=== PATIENT | female | born 1975 | race Caucasian/White ===

== ENCOUNTER 2020-12-07 14:02 | Inpatient (IN) ==
[2020-12-07] MEDS ORDERED: ADENOSINE IV SOLN 3 MG/ML 2 ML VIAL IV ONE ×2 (14:25→14:29)
[2020-12-07] MEDS ORDERED: ADENOSINE IV SOLN 3 MG/ML 2 ML VIAL IV STA ×2 (14:27)
[2020-12-07] MEDS ORDERED: ONDANSETRON INJ 2 MG/ML 2 ML VIAL IV STA (14:27)
[2020-12-07] MEDS ORDERED: SODIUM CHLORIDE 0.9% 1000ML 1,000 ML IV ONE ×2 (14:27→14:42)
[2020-12-07] MEDS ORDERED: MAGNESIUM SULFATE / D5W 1 GM/100 ML BAG IV STA ×2 (14:28→16:23)
[2020-12-07 14:44] LABS: Basophils # (auto) 0.01 K/uL (0-0.2); Basophils % (auto) 0.1 %; Eosinophils # (auto) 0.02 K/uL (0-0.5); Eosinophils % (auto) 0.2 %; Hematocrit (blood only) 44.3 % (37-47); Hemoglobin 15.2 g/dL (12.0-16.0); Immature Granulocytes # (auto) 0.02 K/uL (0.00-0.02); Immature Granulocytes % (auto) 0.2 %; Lymphocytes # (auto) 1.73 K/uL (1.2-3.4); Lymphocytes % (auto) 16.8 %; Mean Corpuscular Hemoglobin 29.9 pg (25-34); Mean Corpuscular Hgb Conc 34.3 g/dL (32-36); Mean Corpuscular Volume 87.2 fL (80-100); Mean Platelet Volume 11.3 fL (7.4-10.4); Monocytes # (auto) 0.54 K/uL (0.11-0.59); Monocytes % (auto) 5.2 %; Neutrophils # (auto) 7.98 K/uL (1.4-6.5); Neutrophils % (auto) 77.5 %; Platelet Count 243 K/uL (130-400); RDW Coefficient of Variation 12.9 % (11.5-14.5); RDW Standard Deviation 41.6 fL (36.4-46.3); Red Blood Count 5.08 M/uL (4.2-5.4)
--- NOTE | 2020-12-07 15:00 | XRay Report ---
XR chest 1V portable CLINICAL HISTORY: Chest Pain COMPARISON STUDY: No previous studies for comparison. FINDINGS: No pneumothorax. No pleural effusion. No large infiltrates or consolidative lesions are seen. Cardiomediastinal silhouette is within normal limits in size. No significant pulmonary vascular congestion.. Osseous structures: unremarkable Linear lucency on the left hemidiaphragm is most likely due to superimposition of posterior aspect of the left inferior rib on gastric bubble however sometimes free air within the abdomen might have sim ilar appearance. IMPRESSION: 1. No large infiltrates or consolidative lesions. 2. Questionable lucency of the left hemidiaphragm most likely due to superimposition of structures h owever sometimes free air within abdomen might have similar appearance. Further evaluation with right decubitus radiograph of the abdomen is recommended. Above-mentioned findings where reported to [facility]. ACT 112: Negative or not required by law. The above report was generated using voice recognition software. It may contain grammatical, syntax o r spelling errors. Electronically signed by: Niyah Diaz DO 12/07/2020 2:59 PM
[2020-12-07 15:16] LABS: Albumin Globulin Ratio 0.8 (0.9-2); Albumin Level 3.7 gm/dl (3.4-5.0); BUN Creatinine Ratio 10.9 (10-20); Bilirubin,Total 0.7 mg/dl (0.2-1); Calcium 9.5 mg/dl (8.5-10.1); Creatine Kinase MB 6.1 ng/ml (0.5-3.6); Creatinine Clr Calc Pharmacy 70.9 ml/min; Est GFR (African American) 65.6 ml/min; Est GFR (Non-African American) 56.6 ml/min; Globulin 4.7 gm/dl (2.5-4.0); Potassium 3.8 mmol/L (3.5-5.1); Total Protein 8.4 gm/dl (6.4-8.2); Troponin I 0.044 ng/ml (0-0.045)
[2020-12-07] MEDS ORDERED: NovoLIN-R INSULIN PER UNIT CHARGE IV STA (15:20)
[2020-12-07] MEDS ORDERED: POTASSIUM CHLORIDE 10 MEQ TABCR PO STA (15:21)
[2020-12-07 15:22] LABS: Partial Thromboplastin Time 25.9 Seconds (21.0-31.0)
[2020-12-07] MEDS ORDERED: Heparin IV Adult Wt-Based Standard *NO* Bolus Protocol IV ONE (15:22)
[2020-12-07 15:27] LABS: Beta-Hydroxybutyrate 7.06 mg/dl (0.2-2.81)
[2020-12-07 15:33] LABS: Pregnancy Test, Serum Negative (Negative)
[2020-12-07 15:37] LABS: D Dimer 720 ug/L FEU (0-500)
[2020-12-07] MEDS: HEPARIN SODIUM/DEXTROSE 25,000 UNITS/500 ML BAG IV SCH (15:39)
[2020-12-07] MEDS ORDERED: OPTIRAY 320 125ml IV ONE (15:54)
[2020-12-07 16:11] LABS: Magnesium 1.7 mg/dl (1.8-2.4); Thyroid Stimulating Hormone 1.15 uIu/ml (0.300-4.500)
--- NOTE | 2020-12-07 16:40 | History & Physical Report ---
Date of Service December 07, 2020 Assessment & Plan (1) SVT (supraventricular tachycardia): This is a 45-year-old female who has significant past medical history of morbid obesity and asthma who presents to ED after experiencing lightheadedness, shortness of breath and palpitations 30 minutes prior to arrival. Patient presented in SVT with initial heart rates in the 150s. Responded appropriately to IV adenosine x2. Initial elevation of his CK and CK-MB, initial troponin 0.044. She denied any chest pain during SVT or current chest pain. In ED she was empirically started on IV heparin due to concern for possible NSTEMI. She also received 1 g IV magnesium, 20 mEq oral potassium, 10 units of IV insulin, 2 L of IV fluid Admit to telemetry Cycle troponins Obtain echocardiogram Consult cardiology CTA Chest pending, will also check venous doppler lower ext b/l replace mag and K, keep > 2.0 and 4.0 respectively start metoprolol tartrate 12.5 mg twice daily, as needed IV Lopressor for heart rates greater than 110 Abnormal Xray ?luceny of L hemidiaphragm chest CTA unremarkable will check KUB (2) Hypomagnesemia: Mag 1.7 Received 1 g mag sulfate in ED, will order additional 1 g Repeat magnesium at 8 PM (3) New onset type 2 diabetes mellitus: Presented to ED with BSG's in the 400 A1c pending Received 10 units IV insulin in ED Lantus/NovoLog per protocol diabetic educator (4) Elevated transaminase level: AST 95, ALT 92, alk phos 159 Question if in setting of fatty liver CTA chest confirms hepatic steatosis recommend diet and weight loss (5) Obesity (BMI 30-39.9): BMI 36.7 Encourage diet and lifestyle modifications (6) DVT prophylaxis: Currently on IV heparin if d/c IV heparin recommend place on SQ lovenox Dispo: PCU PCP: Previously was Dr. Naik - will need to establish with new PCP FULL CODE Patient was seen and examined in collaboration with Dr. Pacheco, please see addendum History of Present Illness Chief Complaint: Lightheadedness, shortness of breath, palpitations 30 minutes prior to arrival. Primary Care Provider: Previously Dr. Naik This is a 45-year -old female who has significant past medical history of morbid obesity and asthma who presents to ED after experiencing lightheadedness, shortness of breath and palpitations 30 minutes prior to arrival. Patient was walking in [facility] for approximately a quarter of a mile whenever she thought she was having, "a panic attack." She began experiencing heart racing, lightheadedness, diaphoresis, nausea and shortness of breath. Her and her opted to turn around and return to her car. She had significant increased difficulty walking back to her car. When she got to her car her husb and noted she continually to sweat profusely and opted to bring her to ED. She denied any associated chest pain, syncope, headache, change in vision, change in hearing, cough, URI symptoms, abdominal pain, change in bowel or urinary habits. When she arrived to ED she was found to have heart rates in the 150s and EKG reading SVT. She did have one episode of vomiting. She received adenosine 6 mg and an additional 12 mg of adenosine until she returned to normal sinus rhythm. She further received 2 L of IV fluid, 1 g mag sulfate, 20 mEq oral potassium and 10 units of IV insulin. She was found to have a blood sugar of 429 on random lab draw. She has no prior diagnosis of diabetes. She previously followed with Dr. Naik prior to him retiring. She states she has not seen a doctor in, "a while." She does have a family history of diabetes and hypertension. She does not speak much with her parents denies any known history of CAD. She states her maternal grandmother did have a CHF in her 60s and in her 70s. She does not take any medication on a regular basis and occasionally uses albuterol for her asthma. She feels her asthma has been otherwise well controlled and denies any recent illness. She also occasionally takes ibuprofen for aches or pains. She denies any smoking but does occasionally use alcohol approximately every 3 weeks. This is socially. She denies any herbal supplements or illicit drug use. Allergies Allergy/AdvReac Type Severity Reaction Status Date / Time No Known Allergies Allergy Unknown Verified 12/07/20 16:07 Home Medications Medication Instructions Recorded Confirmed Type albuterol sulfate 2 puff INHALATION Q6H PRN 12/07/20 12/07/20 History Past Med/Surg History Medical History (Updated 12/07/20 @ 18:14 by Josh Medrano MD) Asthma Surgical History (Updated 12/07/20 @ 16:34 by Supriya Lindsey PA-C) History of x 2 History of D&C S/P laparoscopic hysterectomy Family History (Updated 12/07/20 @ 16:34 by Supriya Lindsey PA-C) Mother Diabetes Hypertension Father Diabetes Hypertension Grandmother (Maternal) CHF (congestive heart failure) Social History (Updated 12/07/20 @ 16:35 by Supriya Lindsey PA-C) Smoking Status: Never smoker Hx Alcohol Use: Yes Alcohol type: beer and wine Alcohol Intake Frequency: Monthly or Less Hx Substance Use: No Preferred Language: Croatian Communication Ability: Effective Soup Person Required: No Beliefs That Will Affect Care: None marital status: Current Living Situation: Family current occupational status: employed 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 Other Information That Helps Us Care for You: No Feels Safe at Home: Yes Safety Concerns: Feels Safe At This Time Assistive Devices: Contacts Review of Systems Review of Systems: All systems reviewed & are unremarkable except as noted in HPI & below Physical Exam Physical Exam: Constitutional: WD/WN, obese, female, vitals as above, NAD, sitting up in bed, pleasant, conversing easily Head: Normocephalic, Atraumatic Eyes: PERRL, conjunctivae normal, anicteric sclerae ENMT: external ear and nose normal, oropharynx normal Neck: trachea midline, no thyromegaly normal visual inspection Respiratory: normal respiratory effort, lungs clear to auscultation, no wheeze, rales, rhonchi. Normal insp/exp effort, no accessory muscle use Cardiovascular: RRR, no murmur, bilateral pretibial edema Vessels: no JVD or carotid bruit Chest: normal inspection of chest Abdomen: normal bowel sounds, soft, nontender, no hepatosplenomegaly Musculoskeletal: no cyanosis or clubbing, extremities motor strength 5/5 Skin: no rashes, warm and dry normal turgor Neurologic: PERRL, EOMI, accommodation nl, no face palsy, no dysarthria CN's II-XI intact bilaterally and moves all extremities Psychiatric: A+Ox3, euthymic affect Lymphatic: no cervical or axillary lymphadenopathy : deferred Results & Data Results & Data ([facility]) Vital Signs (Past 12 Hours) Vital Signs Temp Pulse Resp BP Pulse Ox 12/07/20 14:58 96 H 99 12/07/20 14:57 99 12/07/20 14:32 110 H 26 H 137/102 H 12/07/20 14:15 135 H 21 149/107 H 12/07/20 14:04 36.5 C 151 H 20 146/77 H 98 Diagnostic Findings Chest X-Ray 12/07/20 14:27 XR chest 1V portable CLINICAL HISTORY: Chest Pain COMPARISON STUDY: No previous studies for comparison. FINDINGS: No pneumothorax. No pleural effusion. No large infiltrates or consolidative lesions are seen. Cardiomediastinal silhouette is within normal limits in size. No significant pulmonary vascular congestion.. Osseous structures: unremarkable Linear lucency on the left hemidiaphragm is most likely due to superimposition of posterior aspect of the left inferior rib on gastric bubble however sometimes free air within the abdomen might have similar appearance. IMPRESSION: 1. No large infiltrates or consolidative lesions. 2. Questionable lucency of the left hemidiaphragm most likely due to superimposition of structures however sometimes free air within abdomen might h ave similar appearance. Further evaluation with right decubitus radiograph of the abdomen is recommended. Above-mentioned findings where reported to patient's unit. ACT 112: Negative or not required by law. The above report was generated using voice recognition software. It may contain grammatical, syntax or spelling errors. Electronically signed by: Niyah Diaz DO 12/07/2020 2:59 PM Medications Administered Medication List Heparin Sodium/Dextrose (Heparin Sodium/Dextrose) 25,000 units in 500 mls @ 27 mls/hr IV .[id number] [facility]; Protocol Stop: 01/06/21 15:36 Last Admin: 12/07/20 15:39 Dose: 1,350 units/hr, 27 mls/hr Documented by: [id number] Cosigned by: [id number] Discontinued Medications Adenosine (Adenosine Iv Soln 3 Mg/Ml 2 Ml Vial) Confirm Administered Dose 6 mg IV .STK-MED ONE Stop: 12/07/20 14:26 Last Admin: 12/07/20 14:26 Dose: 6 mg Documented by: [id number] Adenosine (Adenosine Iv Soln 3 Mg/Ml 2 Ml Vial) 6 mg IV NOW STA Stop: 12/07/20 14:28 Last Admin: 12/07/20 14:38 Dose: Not Given Documented by: [id number] Adenosine (Adenosine Iv Soln 3 Mg/Ml 2 Ml Vial) 12 mg IV NOW STA Stop: 12/07/20 14:28 Last Admin: 12/07/20 14:28 Dose: 12 mg Documented by: [id number] Adenosine (Adenosine Iv Soln 3 Mg/Ml 2 Ml Vial) Confirm Administered Dose 6 mg IV .STK-MED ONE Stop: 12/07/20 14:30 Last Admin: 12/07/20 14:38 Dose: Not Given Documented by: [id number] Heparin Sodium/Dextrose (Heparin Iv Adult Wt-Based Standard *No* Bolus Protocol) 1 ea IV ONE ONE; Protocol Stop: 12/07/20 15:23 Last Admin: 12/07/20 15:41 Dose: 1 ea Documented by: [id number] Sodium Chloride (Nss 1000ml) 1,000 mls @ 999 mls/hr IV .Q1H1M ONE Stop: 12/07/20 15:27 Last Admin: 12/07/20 14:26 Dose: 999 mls/hr Documented by: [id number] Magnesium Sulfate/Dextrose (Magnesium Sulfate / D5w) 1 gm in 100 mls @ 100 mls/hr IV NOW STA Stop: 12/07/20 15:27 Last Admin: 12/07/20 14:38 Dose: 100 mls/hr Documented by: [id number] Sodium Chloride (Nss 1000ml) 1,000 mls @ 999 mls/hr IV .Q1H1M ONE Stop: 12/07/20 15:42 Last Admin: 12/07/20 15:30 Dose: 999 mls/hr Documented by: [id number] Insulin Human Regular (Novolin-R Insulin Per Unit Charge) 10 units IV NOW STA Stop: 12/07/20 15:21 Last Admin: 12/07/20 15:26 Dose: 10 units Documented by: [id number] Cosigned by: [id number] Ioversol (Optiray 320 125ml) 119 ml IV ONCE ONE Stop: 12/07/20 15:55 Last Admin: 12/07/20 15:55 Dose: 1 ml Documented by: [id number] Ondansetron HCl (Ondansetron Inj 2 Mg/Ml 2 Ml Vial) 4 mg IV NOW STA Stop: 12/07/20 14:28 Last Admin: 12/07/20 14:37 Dose: 4 mg Documented by: [id number] Potassium Chloride (Potassium Chloride 10 Meq Tabcr) 20 meq PO NOW STA Stop: 12/07/20 15:22 Last Admin: 12/07/20 15:39 Dose: 20 meq Documented by: [id number] ECG Rate (beats per minute): 150 Rhythm: SVT Findings: + ST depression (lateral) COVID-19 Results Results COVID-19 Adm Lab Results: RBC 5.08 M/uL (4.2-5.4) 12/07/20 WBC 10.30 K/uL (4.8-10.8) 12/07/20 Hgb 15.2 g/dL (12.0-16.0) 12/07/20 Hct 44.3 % (37-47) 12/07/20 Plt Count 243 K/uL (130-400) 12/07/20 Neutrophils (%) (Auto) 77.5 % 12/07/20 Lymphocytes (%) (Auto) 16.8 % 12/07/20 Monocytes # (Auto) 0.54 K/uL (0.11-0.59) 12/07/20 Eosinophils # (Auto) 0.02 K/uL (0-0.5) 12/07/20 Immature Granulocyte % (Auto) 0.2 % 12/07/20 Neutrophils # (Auto) 7.98 K/uL (1.4-6.5) H 12/07/20 Lymphocytes # (Auto) 1.73 K/uL (1.2-3.4) 12/07/20 Monocytes # (Auto) 0.54 K/uL (0.11-0.59) 12/07/20 Eosinophils # (Auto) 0.02 K/uL (0-0.5) 12/07/20 Basophils # (Auto) 0.01 K/uL (0-0.2) 12/07/20 Immature Granulocyte # (Auto) 0.02 K/uL (0.00-0.02) 12/07/20 Na 134 mmol/L (136-145) L 12/07/20 K 3.8 mmol/L (3.5-5.1) 12/07/20 Cl 99 mmol/L (98-107) 12/07/20 CO2 27 mmol/L (21-32) 12/07/20 Anion Gap 8.0 (3-11) 12/07/20 BUN 13 mg/dl (7-18) 12/07/20 Creatinine 1.15 mg/dl (0.6-1.2) 12/07/20 BUN/Creatinine Ratio 10.9 (10-20) 12/07/20 Glucose Level 429 mg/dl (70-99) H* 12/07/20 Ca 9.5 mg/dl (8.5-10.1) 12/07/20 Total Bilirubin 0.7 mg/dl (0.2-1) 12/07/20 AST/SGOT 95 U/L (15-37) H 12/07/20 ALT/SGPT 92 U/L (12-78) H 12/07/20 Alkaline Phosphatase 159 U/L (45-117) H 12/07/20 Total Protein 8.4 gm/dl (6.4-8.2) H 12/07/20 Albumin 3.7 gm/dl (3.4-5.0) 12/07/20 Globulin 4.7 gm/dl (2.5-4.0) H 12/07/20 Albumin/Globulin Ratio 0.8 (0.9-2) L 12/07/20 Total CK 307 U/L (26-192) H 12/07/20 Troponin I 0.044 ng/ml (0-0.045) 12/07/20 D-Dimer 720 ug/L FEU (0-500) H* 12/07/20 PTT 25.9 Seconds (21.0-31.0) 12/07/20 COVID-19 PCR NEGATIVE (Negative) 12/07/20 Chest X-Ray 12/07/20 Code Status & VTE Plan Code Status Full Code VTE Prophylaxis Plan VTE Prophylaxis will be ordered: No Supervising Physician Co-Signing Physician Notes Patient is a 45-year-old female with history of asthma which is well controlled but otherwise no significant past medical history presents with history of an episode of shortness of breath, dizziness associated with palpitation, and diaphoresis lasting for about 30 minutes. Patient denies having similar episode in the past. Patient also denies any history of chest pain, fever, chills, abdominal pain, diarrhea, dysuria, recent change in medications. She did admit to have episode of vomiting. She denies any alcohol use. No known history of sleep apnea or diabetes. She admits to drinking about 8 cups of tea every day. Please review H&P for complete details of presentation. Patient was found to be in SVT while in ED. She received 2 doses of Adenosine which resolved her symptoms. She was also noted to have elevated blood pressure while in ED. On exam patient is obese, no apparent distress, normocephalic atraumatic, lungs are clear to auscultation, normal breath sounds, S1-S2, no murmur, no pedal edema, abdomen soft, nontender, normal bowel sounds, alert, awake, oriented, grossly no focal neurological deficits. Her D-dimer was elevated at 720. Glucose elevated at 429 on presentation. Magnesium noted at 1.7. Transaminitis with AST, ALT, alkaline phosphatase elevation noted. TSH is within normal limits. She was started on IV heparin while in the ED due to concerns for possible ACS. CTA showed no signs of no pulmonary embolism multifocal consolidation. But showed findings of hepatic steatosis. Patient is admitted for management of SVT, new onset diabetes mellitus, transaminitis, hypomagnesemia and elevated D-dimer. Currently she is in sinus. Will obtain resting echo, monitor electrolytes and replace as needed, consult cardiology. Will start on metoprolol, losartan for better blood pressure control. Will replace magnesium. Will Utilize Insulin therapy while hospitalized and obtain HbA1c. Transaminitis likely secondary to will trend liver function tests. Will obtain venous Dopplers to rule out DVT. Will consider discontinuing IV heparin if troponin remains un elevated. I personally reviewed the record. Patient is interviewed and examined at bedside. Patient's care is coordinated with Supriya Lindsey PA-C. Please refer to the documentation above for details of patient's presentation and for discussion of other issues.
[2020-12-07] MEDS ORDERED: METOPROLOL TARTRATE 25 MG TAB PO STA ×2 (16:52→21:34)
[2020-12-07 17:01] LABS: Appearance Urine Clear (Clear); Bilirubin Urine Negative (Negative); Blood Urine Negative (Negative); Color Urine Yellow; Glucose Urine UA 3+ (Negative); Ketones Urine 1+ (Negative); Leukocyte Esterase Urine Negative (Negative); Nitrite Urine Negative (Negative); Protein Urine Negative (Negative); Specific Gravity Urine 1.024 (1.000-1.030); Urobilinogen Urine Negative (Negative); pH Urine 5.5 (4.5-7.5)
--- NOTE | 2020-12-07 17:09 | CT Scan Report ---
CT ANGIOGRAM OF THE CHEST CLINICAL HISTORY: PE COMPARISON STUDY: No previous studies for comparison. TECHNIQUE: Following the IV administration of 119 mL of Optiray, CT angiogram of the thorax was perfo rmed from the thoracic inlet to the lung bases utilizing the pulmonary embolus protocol. Images are r eviewed in the axial, sagittal, and coronal planes. IV contrast was administered without complication . MIP imaging was performed. A dose lowering technique was utilized adhering to the principles of AL YONI. CT DOSE: 445.66 mGy.cm FINDINGS: There is adequate opacification within main pulmonary artery. No acute pulmonary embolus seen. There is mild prominence of the main pulmonary artery is seen. Heart is normal in size without pericardial effusion or right heart strain. No coronary calcification s seen. There is no axillary, supra clavicle or internal mammary lymphadenopathy seen. Visualized portion of thyroid gland shows no evidence of focal lesions. Esophagus is normal. Aorta is normal in caliber. Tracheobronchial tree is patent. No large infiltrates or consolidative lesions are seen. Mild atelectasis at dependent portions of bilateral lower lobes is seen. There is no pleural effusion demonstrated. Limited evaluation of upper abdominal viscera shows hepatic steatosis and no acute abnormalities. Evaluation of osseous structures shows mild degenerative changes of the spine. IMPRESSION: 1. No acute pulmonary embolus. 2. No infiltrates or consolidative lesions are seen. Minimal atelectasis at dependent portions of bi lateral lower lobes. 3. Hepatic steatosis ACT 112: Negative or not required by law. The above report was generated using voice recognition software. It may contain grammatical, syntax o r spelling errors. Electronically signed by: Niyah Diaz DO 12/07/2020 5:07 PM
--- NOTE | 2020-12-07 18:04 | Emergency Department Note ---
Impression & Plan SVT (supraventricular tachycardia), New onset type 2 diabetes mellitus, Elevated transaminase level, Elevated troponin ED Provider Note NAME: KRISTEN MOROCHO AGE: 45 SEX: F : 1975 ARRIVES VIA: Walk-In INFORMANT: Patient, ED PROVIDER(S): Josh Medrano MD CHIEF COMPLAINT: shortness of breath, dizziness HPI: This is a 45-year-old female who presents emergency department complaining of shortness of breath that developed while the patient was walking in the park today. The patient reports she normally ate breakfast and was walking in the park. (It is a hot humid day) when she developed a sudden onset of weakness along with dizziness and shortness of breath. The patient reports it feels like her heart is beating out of her chest however she denies any chest pain. The patient's symptoms continued to get worse until she arrived here in the emergency department when she vomited. She reports any exertion makes the shortness of breath worse and rest seems to help it somewhat. She has not taken anything for this prior to arrival. She denies any abdominal pain. ROS: See above HPI for pertinent positives & negatives. A total of 10 systems reviewed and were otherwise negative. PAST MEDICAL HISTORY: See Below PAST SURGICAL HISTORY: See Below FAMILY HISTORY: See Below SOCIAL HISTORY: See Below HOME MEDICATIONS: See Below ALLERGIES: See Below VITALS: See Below PHYSICAL EXAMINATION: VITAL SIGNS - Vital signs and nursing notes were reviewed. GENERAL - 45-year-old female appearing stated age who is in moderate distress. Communicates well with provider and answers questions appropriately. SKIN - Without rashes. HEAD - NC/AT. EYES - PERRL with EOMI bilaterally. Sclera anicteric. Palpebral conjunctiva pink and moist with no injection noted. EARS - No deformities of external structures noted on gross examination bilaterally. NOSE - Midline and without cyanosis. No epistaxis or purulent drainage noted. Septum midline without deviation or septal hematoma noted. MOUTH/OROPHARYNX - Without perioral cyanosis. Buccal mucosa pink and moist and without leukoplakia. Tongue midline with equal elevation of palate bilaterally. No tonsillar hypertrophy, erythema, or exudates noted. NECK - Neck with FROM. Supple to palpation. No nuchal rigidity. LUNGS - Chest wall symmetric without accessory muscle use, intercostals retractions, or central cyanosis. Normal vesicular breath sounds CTA B/L. No wheezes, rales, or rhonchi appreciated. CARDIAC - Rapid Rate with S1/S2. No murmur, rubs, or gallops appreciated. ABDOMEN - Abdominal contour without pulsations or visible masses. BS normoactive all four quadrants. No tenderness, palpable masses, hepatosplenomegaly, or ascites noted. EXTREMITIES - No clubbing or peripheral cyanosis. No pretibial edema present. +3/5 radial, posterior tibial, and dorsalis pedis pulses palpated throughout. +5 /5 strength noted in UE/LE bilaterally. NEUROLOGIC - Cranial nerves II through XII grossly intact. Sensory intact to light touch throughout. Patellar reflexes +2/4. PSYCH - A&Ox3 and cooperates fully with examiner. Pt is very pleasant and interacts well with examiner. MEDICAL DECISION MAKING: Patient was seen and evaluated as above in room A2. Review was performed of nursing notes and vital signs. I did review pertinent previous visits and patient history. After obtaining a thorough history and physical examination the above work up was performed. This a 45-year-old female who presents to the emergency department complaining of palpitations. The patient was noted to have a heart rate in the 150s and she was immediately taken to a room and immediately interviewed by me. I attempted to do vasovagal maneuvers with ice without any success in the patient's heart rate. She was then given adenosine here in the emergency department x2. This resulted in immediate improvement in the patient's heart rhythm. The patient was then given 2 L of fluid started on magnesium as well as Zofran. The patient's glucose levels found to be grossly elevated. She was then given 10 units of insulin IV after her potassium was repleted. I suspect this is the patient's undiagnosed diabetes declaring itself however she also does have elevations in her CK MB as well as troponin. For this reason she was started on a heparin drip. She was sent for CAT scan of the chest due to the elevation in her D-dimer. I did discuss her case with cardiology who asked that the enzymes to be trended and did discuss the case with the hospitalist service who did agree to admit the patient. An order was placed for continuous cardiac monitoring. The monitor shows a rate of 150 with Supraventricular rhythm. The patient was evaluated during a period of high volume and high acuity during the global COVID-19 pandemic, and that diagnosis was suspected/considered upon their initial presentation. Their evaluation, treatment and testing was consistent with current guidelines for patients who present with complaints or symptoms that may be related to COVID-19. Patient was seen while provider was wearing PPE. Triage Nursing notes reviewed. Prior medical records reviewed Vital Signs: reviewed and remarkable for no significant abnormalities Differential diagnosis: Cardiac ischemia, aortic dissection, pulmonary embolism, pneumothorax, pneumonia, pericarditis, myocarditis, esophageal rupture, GERD, cholecystitis, pancreatitis, musculoskeletal, as well as other pathologies. ER treatment provided: See below Diagnostics interpreted by me: ECG: EKG shows a supraventricular tachycardia left axis deviation no ST elevation or depression QTC is 461 ventricular rate is 142 there is no previous EKG to compare to Repeat EKG shows a sinus tachycardia left axis deviation QTC is 482 ventricular rate is [address] elevation or depression when compared to previous EKG ST is no longer depressed in the inferior leads Repeat EKG shows a normal sinus rhythm left axis deviation prolonged QT QTC is 44 ventricular rate is 90 when compared to previous EKG inverted T waves have normalized Laboratory studies: As stated above and show below. Imaging studies: See below Consultation(s): Cardiology Internal Medicine Critical Care: I have personally spent greater than 30 minutes of critical care time in the direct management of this patient. This includes bedside care, interpretation of diagnostic studies, and testing, discussion with consultants, patient, and family members, and other required patient management activities. This 30 minutes is in excess of all separately billable procedures. Past Med/Surg History Medical History (Updated 12/07/20 @ 18:14 by Josh Medrano MD) Asthma Surgical History (Updated 12/07/20 @ 16:34 by Supriya Lindsey PA-C) History of x 2 History of D&C S/P laparoscopic hysterectomy Family History (Updated 12/07/20 @ 16:34 by Supriya Lindsey PA-C) Mother Diabetes Hypertension Father Diabetes Hypertension Grandmother (Maternal) CHF (congestive heart failure) Social History (Updated 12/07/20 @ 16:35 by Supriya Lindsey PA-C) Smoking Status: Never smoker Hx Alcohol Use: Yes Alcohol type: beer and wine Alcohol Intake Frequency: Monthly or Less Hx Substance Use: No Preferred Language: Romansh marital status: Current Living Situation: Family current occupational status: employed 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 Feels Safe at Home: Yes Allergies Allergies Allergy/AdvReac Type Severity Reaction Status Date / Time No Known Allergies Allergy Unknown Verified 12/07/20 16:07 Home Meds Home Medications Medication Instructions Recorded Confirmed albuterol sulfate 2 puff INHALATION Q6H PRN 12/07/20 12/07/20 Results & Data (ED) Vital Signs Vital Signs - 24 hr 12/07/20 14:04 12/07/20 14:15 12/07/20 14:32 Temperature 36.5 C Temperature Source Temporal Artery Scan Pulse Rate 151 H 135 H 110 H Pulse Rate from SpO2 Sensor Pulse Rhythm Regular Pulse Strength Normal Respiratory Rate 20 21 26 H Respiratory Effort / Characteristics Non-Labored Spontaneous Respiratory Depth Normal Respiratory Pattern Regular Blood Pressure 146/77 H 149/107 H 137/102 H Blood Pressure Mean 100 121 113 Blood Pressure Position Sitting Pulse Oximetry 98 Oxygen Delivery Method Room Air Sepsis Recent Fever Within 48 Hours No Sepsis New/Unexplained Change in Mental Status No Sepsis Action Taken by Nursing No Action Required 12/07/20 14:57 12/07/20 14:58 12/07/20 16:31 Temperature Temperature Source Pulse Rate 96 H Pulse Rate from SpO2 Sensor 93 H Pulse Rhythm Pulse Strength Respiratory Rate 20 Respiratory Effort / Characteristics Respiratory Depth Respiratory Pattern Blood Pressure 150/104 H Blood Pressure Mean 119 Blood Pressure Position Pulse Oximetry 99 99 100 Oxygen Delivery Method Room Air Room Air Room Air Sepsis Recent Fever Within 48 Hours Sepsis New/Unexplained Change in Mental Status Sepsis Action Taken by [facility]pc Medications Current Medication List: was personally reviewed by me Laboratory Data Attestation: I reviewed the patient's lab results. Result diagrams: 12/07/20 14:35 12/07/20 14:35 Lab Results 12/07/20 12/07/20 12/07/20 Range/Units 14:35 14:35 14:35 WBC 10.30 (4.8-10.8) K/uL RBC 5.08 (4.2-5.4) M/uL Hgb 15.2 (12.0-16.0) g/dL Hct 44.3 (37-47) % MCV 87.2 (80-100) fL MCH 29.9 (25-34) pg MCHC 34.3 (32-36) g/dL RDW Std Deviation 41.6 (36.4-46.3) fL RDW Coeff of Wolfgang 12.9 (11.5-14.5) % Plt Count 243 (130-400) K/uL MPV 11.3 H (7.4-10.4) fL Immature Gran % (Auto) 0.2 % Neut % (Auto) 77.5 % Lymph % (Auto) 16.8 % [place] % (Auto) 5.2 % Eos % (Auto) 0.2 % Baso % (Auto) 0.1 % Neut # (Auto) 7.98 H (1.4-6.5) K/uL Lymph # (Auto) 1.73 (1.2-3.4) K/uL [place] # (Auto) 0.54 (0.11-0.59) K/uL Eos # (Auto) 0.02 (0-0.5) K/uL Baso # (Auto) 0.01 (0-0.2) K/uL Immature Gran # (Auto) 0.02 (0.00-0.02) K/uL APTT 25.9 (21.0-31.0) Seconds PTT Ratio 1.0 D-Dimer 720 H* (0-500) ug/L FEU Sodium 134 L (136-145) mmol/L Potassium 3.8 (3.5-5.1) mmol/L Chloride 99 (98-107) mmol/L Carbon Dioxide 27 (21-32) mmol/L Anion Gap 8.0 (3-11) BUN 13 (7-18) mg/dl Creatinine 1.15 (0.6-1.2) mg/dl Est Cr Clr Drug Dosing 70.9 ml/min Est GFR ( Amer) 65.6 ml/min Est GFR (Non-Af Amer) 56.6 ml/min BUN/Creatinine Ratio 10.9 (10-20) Glucose 429 H* (70-99) mg/dl POC Glucose (70-99) mg/dl Calcium 9.5 (8.5-10.1) mg/dl Magnesium 1.7 L (1.8-2.4) mg/dl Total Bilirubin 0.7 (0.2-1) mg/dl AST 95 H (15-37) U/L ALT 92 H (12-78) U/L Alkaline Phosphatase 159 H (45-117) U/L Total Creatine Kinase 307 H (26-192) U/L CK-MB (CK-2) 6.1 H (0.5-3.6) ng/ml CK/CKMB % Calc 2.0 (0-3.0) Troponin I 0.044 (0-0.045) ng/ml Total Protein 8.4 H (6.4-8.2) gm/dl Albumin 3.7 (3.4-5.0) gm/dl Globulin 4.7 H (2.5-4.0) gm/dl Albumin/Globulin Ratio 0.8 L (0.9-2) Lipase 107 (73-393) U/L Beta-Hydroxybutyric Acd 7.06 H (0.2-2.81) mg/dl TSH 1.150 (0.300-4.500) uIu/ml HCG, Qual (Negative) Urine Color Urine Appearance (Clear) Urine pH (4.5-7.5) Ur Specific [place] (1.000-1.030) Urine Protein (Negative) Urine Glucose (UA) (Negative) Urine Ketones (Negative) Urine Blood (Negative) Urine Nitrite (Negative) Urine Bilirubin (Negative) Urine Urobilinogen (Negative) Ur Leukocyte Esterase (Negative) COVID-19 Eval Order SARS-CoV-2 (PCR) (Negative) 12/07/20 12/07/20 12/07/20 Range/Units 14:48 14:49 14:49 WBC (4.8-10.8) K/uL RBC (4.2-5.4) M/uL Hgb (12.0-16.0) g/dL Hct (37-47) % MCV (80-100) fL MCH (25-34) pg MCHC (32-36) g/dL RDW Std Deviation (36.4-46.3) fL RDW Coeff of Wolfgang (11.5-14.5) % Plt Count (130-400) K/uL MPV (7.4-10.4) fL Immature Gran % (Auto) % Neut % (Auto) % Lymph % (Auto) % [place] % (Auto) % Eos % (Auto) % Baso % (Auto) % Neut # (Auto) (1.4-6.5) K/uL Lymph # (Auto) (1.2-3.4) K/uL [place] # (Auto) (0.11-0.59) K/uL Eos # (Auto) (0-0.5) K/uL Baso # (Auto) (0-0.2) K/uL Immature Gran # (Auto) (0.00-0.02) K/uL APTT (21.0-31.0) Seconds PTT Ratio D-Dimer (0-500) ug/L FEU Sodium (136-145) mmol/L Potassium (3.5-5.1) mmol/L Chloride (98-107) mmol/L Carbon Dioxide (21-32) mmol/L Anion Gap (3-11) BUN (7-18) mg/dl Creatinine (0.6-1.2) mg/dl Est Cr Clr Drug Dosing ml/min Est GFR ( Amer) ml/min Est GFR (Non-Af Amer) ml/min BUN/Creatinine Ratio (10-20) Glucose (70-99) mg/dl POC Glucose (70-99) mg/dl Calcium (8.5-10.1) mg/dl Magnesium (1.8-2.4) mg/dl Total Bilirubin (0.2-1) mg/dl AST (15-37) U/L ALT (12-78) U/L Alkaline Phosphatase (45-117) U/L Total Creatine Kinase (26-192) U/L CK-MB (CK-2) (0.5-3.6) ng/ml CK/CKMB % Calc (0-3.0) Troponin I (0-0.045) ng/ml Total Protein (6.4-8.2) gm/dl Albumin (3.4-5.0) gm/dl Globulin (2.5-4.0) gm/dl Albumin/Globulin Ratio (0.9-2) Lipase (73-393) U/L Beta-Hydroxybutyric Acd (0.2-2.81) mg/dl TSH (0.300-4.500) uIu/ml HCG, Qual Negative (Negative) Urine Color Urine Appearance (Clear) Urine pH (4.5-7.5) Ur Specific [place] (1.000-1.030) Urine Protein (Negative) Urine Glucose (UA) (Negative) Urine Ketones (Negative) Urine Blood (Negative) Urine Nitrite (Negative) Urine Bilirubin (Negative) Urine Urobilinogen (Negative) Ur Leukocyte Esterase (Negative) COVID-19 Eval Order Covid19 at [facility] SARS-CoV-2 (PCR) NEGATIVE (Negative) 12/07/20 12/07/20 12/07/20 Range/Units 15:55 15:56 15:57 WBC (4.8-10.8) K/uL RBC (4.2-5.4) M/uL Hgb (12.0-16.0) g/dL Hct (37-47) % MCV (80-100) fL MCH (25-34) pg MCHC (32-36) g/dL RDW Std Deviation (36.4-46.3) fL RDW Coeff of Wolfgang (11.5-14.5) % Plt Count (130-400) K/uL MPV (7.4-10.4) fL Immature Gran % (Auto) % Neut % (Auto) % Lymph % (Auto) % [place] % (Auto) % Eos % (Auto) % Baso % (Auto) % Neut # (Auto) (1.4-6.5) K/uL Lymph # (Auto) (1.2-3.4) K/uL [place] # (Auto) (0.11-0.59) K/uL Eos # (Auto) (0-0.5) K/uL Baso # (Auto) (0-0.2) K/uL Immature Gran # (Auto) (0.00-0.02) K/uL APTT (21.0-31.0) Seconds PTT Ratio D-Dimer (0-500) ug/L FEU Sodium (136-145) mmol/L Potassium (3.5-5.1) mmol/L Chloride (98-107) mmol/L Carbon Dioxide (21-32) mmol/L Anion Gap (3-11) BUN (7-18) mg/dl Creatinine (0.6-1.2) mg/dl Est Cr Clr Drug Dosing ml/min Est GFR ( Amer) ml/min Est GFR (Non-Af Amer) ml/min BUN/Creatinine Ratio (10-20) Glucose (70-99) mg/dl POC Glucose 333 H* 332 H* (70-99) mg/dl Calcium (8.5-10.1) mg/dl Magnesium (1.8-2.4) mg/dl Total Bilirubin (0.2-1) mg/dl AST (15-37) U/L ALT (12-78) U/L Alkaline Phosphatase (45-117) U/L Total Creatine Kinase (26-192) U/L CK-MB (CK-2) (0.5-3.6) ng/ml CK/CKMB % Calc (0-3.0) Troponin I (0-0.045) ng/ml Total Protein (6.4-8.2) gm/dl Albumin (3.4-5.0) gm/dl Globulin (2.5-4.0) gm/dl Albumin/Globulin Ratio (0.9-2) Lipase (73-393) U/L Beta-Hydroxybutyric Acd (0.2-2.81) mg/dl TSH (0.300-4.500) uIu/ml HCG, Qual (Negative) Urine Color Yellow Urine Appearance Clear (Clear) Urine pH 5.5 (4.5-7.5) Ur Specific [place] 1.024 (1.000-1.030) Urine Protein Negative (Negative) Urine Glucose (UA) 3+ H (Negative) Urine Ketones 1+ H (Negative) Urine Blood Negative (Negative) Urine Nitrite Negative (Negative) Urine Bilirubin Negative (Negative) Urine Urobilinogen Negative (Negative) Ur Leukocyte Esterase Negative (Negative) COVID-19 Eval Order SARS-CoV-2 (PCR) (Negative) 12/07/20 Range/Units 16:35 WBC (4.8-10.8) K/uL RBC (4.2-5.4) M/uL Hgb (12.0-16.0) g/dL Hct (37-47) % MCV (80-100) fL MCH (25-34) pg MCHC (32-36) g/dL RDW Std Deviation (36.4-46.3) fL RDW Coeff of Wolfgang (11.5-14.5) % Plt Count (130-400) K/uL MPV (7.4-10.4) fL Immature Gran % (Auto) % Neut % (Auto) % Lymph % (Auto) % [place] % (Auto) % Eos % (Auto) % Baso % (Auto) % Neut # (Auto) (1.4-6.5) K/uL Lymph # (Auto) (1.2-3.4) K/uL [place] # (Auto) (0.11-0.59) K/uL Eos # (Auto) (0-0.5) K/uL Baso # (Auto) (0-0.2) K/uL Immature Gran # (Auto) (0.00-0.02) K/uL APTT (21.0-31.0) Seconds PTT Ratio D-Dimer (0-500) ug/L FEU Sodium (136-145) mmol/L Potassium (3.5-5.1) mmol/L Chloride (98-107) mmol/L Carbon Dioxide (21-32) mmol/L Anion Gap (3-11) BUN (7-18) mg/dl Creatinine (0.6-1.2) mg/dl Est Cr Clr Drug Dosing ml/min Est GFR ( Amer) ml/min Est GFR (Non-Af Amer) ml/min BUN/Creatinine Ratio (10-20) Glucose (70-99) mg/dl POC Glucose 289 H (70-99) mg/dl Calcium (8.5-10.1) mg/dl Magnesium (1.8-2.4) mg/dl Total Bilirubin (0.2-1) mg/dl AST (15-37) U/L ALT (12-78) U/L Alkaline Phosphatase (45-117) U/L Total Creatine Kinase (26-192) U/L CK-MB (CK-2) (0.5-3.6) ng/ml CK/CKMB % Calc (0-3.0) Troponin I (0-0.045) ng/ml Total Protein (6.4-8.2) gm/dl Albumin (3.4-5.0) gm/dl Globulin (2.5-4.0) gm/dl Albumin/Globulin Ratio (0.9-2) Lipase (73-393) U/L Beta-Hydroxybutyric Acd (0.2-2.81) mg/dl TSH (0.300-4.500) uIu/ml HCG, Qual (Negative) Urine Color Urine Appearance (Clear) Urine pH (4.5-7.5) Ur Specific [place] (1.000-1.030) Urine Protein (Negative) Urine Glucose (UA) (Negative) Urine Ketones (Negative) Urine Blood (Negative) Urine Nitrite (Negative) Urine Bilirubin (Negative) Urine Urobilinogen (Negative) Ur Leukocyte Esterase (Negative) COVID-19 Eval Order SARS-CoV-2 (PCR) (Negative) Administered Medications Heparin Sodium/Dextrose (Heparin Sodium/Dextrose) 25,000 units in 500 mls @ 27 mls/hr IV .[id number] ALIS; Protocol Stop: 01/06/21 15:36 Last Admin: 12/07/20 15:39 Dose: 1,350 units/hr, 27 mls/hr Documented by: [id number] Cosigned by: [id number] Discontinued Medications Adenosine (Adenosine Iv Soln 3 Mg/Ml 2 Ml Vial) Confirm Administered Dose 6 mg IV .STK-MED ONE Stop: 12/07/20 14:26 Last Admin: 12/07/20 14:26 Dose: 6 mg Documented by: [id number] Adenosine (Adenosine Iv Soln 3 Mg/Ml 2 Ml Vial) 6 mg IV NOW STA Stop: 12/07/20 14:28 Last Admin: 12/07/20 14:38 Dose: Not Given Documented by: [id number] Adenosine (Adenosine Iv Soln 3 Mg/Ml 2 Ml Vial) 12 mg IV NOW STA Stop: 12/07/20 14:28 Last Admin: 12/07/20 14:28 Dose: 12 mg Documented by: [id number] Adenosine (Adenosine Iv Soln 3 Mg/Ml 2 Ml Vial) Confirm Administered Dose 6 mg IV .STK-MED ONE Stop: 12/07/20 14:30 Last Admin: 12/07/20 14:38 Dose: Not Given Documented by: [id number] Heparin Sodium/Dextrose (Heparin Iv Adult Wt-Based Standard *No* Bolus Protocol) 1 ea IV ONE ONE; Protocol Stop: 12/07/20 15:23 Last Admin: 12/07/20 15:41 Dose: 1 ea Documented by: [id number] Sodium Chloride (Nss 1000ml) 1,000 mls @ 999 mls/hr IV .Q1H1M ONE Stop: 12/07/20 15:27 Last Infusion: 12/07/20 15:26 Dose: 0 mls/hr Documented by: [id number] Admin: 12/07/20 14:26 Dose: 999 mls/hr Documented by: [id number] Magnesium Sulfate/Dextrose (Magnesium Sulfate / D5w) 1 gm in 100 mls @ 100 mls/hr IV NOW STA Stop: 12/07/20 15:27 Last Infusion: 12/07/20 15:38 Dose: 0 mls/hr Documented by: [id number] Admin: 12/07/20 14:38 Dose: 100 mls/hr Documented by: [id number] Sodium Chloride (Nss 1000ml) 1,000 mls @ 999 mls/hr IV .Q1H1M ONE Stop: 12/07/20 15:42 Last Infusion: 12/07/20 16:30 Dose: 0 mls/hr Documented by: [id number] Admin: 12/07/20 15:30 Dose: 999 mls/hr Documented by: [id number] Magnesium Sulfate/Dextrose (Magnesium Sulfate / D5w) 1 gm in 100 mls @ 100 mls/hr IV NOW STA Stop: 12/07/20 17:22 Last Admin: 12/07/20 17:01 Dose: 100 mls/hr Documented by: [id number] Insulin Human Regular (Novolin-R Insulin Per Unit Charge) 10 units IV NOW STA Stop: 12/07/20 15:21 Last Admin: 12/07/20 15:26 Dose: 10 units Documented by: [id number] Cosigned by: [id number] Ioversol (Optiray 320 125ml) 119 ml IV ONCE ONE Stop: 12/07/20 15:55 Last Admin: 12/07/20 15:55 Dose: 1 ml Documented by: [id number] Ondansetron HCl (Ondansetron Inj 2 Mg/Ml 2 Ml Vial) 4 mg IV NOW STA Stop: 12/07/20 14:28 Last Admin: 12/07/20 14:37 Dose: 4 mg Documented by: [id number] Potassium Chloride (Potassium Chloride 10 Meq Tabcr) 20 meq PO NOW STA Stop: 12/07/20 15:22 Last Admin: 12/07/20 15:39 Dose: 20 meq Documented by: [id number] Imaging Data Radiologist's Impression: Chest X-Ray 12/07/20 14:27 XR chest 1V portable CLINICAL HISTORY: Chest Pain COMPARISON STUDY: No previous studies for comparison. FINDINGS: No pneumothorax. No pleural effusion. No large infiltrates or consolidative lesions are seen. Cardiomediastinal silhouette is within normal limits in size. No significant pulmonary vascular congestion.. Osseous structures: unremarkable Linear lucency on the left hemidiaphragm is most likely due to superimposition of posterior aspect of the left inferior rib on gastric bubble however sometimes free air within the abdomen might have similar appearance. IMPRESSION: 1. No large infiltrates or consolidative lesions. 2. Questionable lucency of the left hemidiaphragm most likely due to superimposition of structures however sometimes free air within abdomen might have similar appearance. Further evaluation with right decubitus radiograph of the abdomen is recommended. Above-mentioned findings where reported to patient's unit. ACT 112: Negative or not required by law. The above report was generated using voice recognition software. It may contain grammatical, syntax or spelling errors. Electronically signed by: Niyah Diaz DO 12/07/2020 2:59 PM Chest CTA 12/07/20 15:38 CT ANGIOGRAM OF THE CHEST CLINICAL HISTORY: PE COMPARISON STUDY: No previous studies for comparison. TECHNIQUE: Following the IV administration of 119 mL of Optiray, CT angiogram of the thorax was performed from the thoracic inlet to the lung bases utilizing the pulmonary embolus protocol. Images are reviewed in the axial, sagittal, and coronal planes. IV contrast was administered without complication. MIP imaging was performed. A dose lowering technique was utilized adhering to the principles of ALARA. CT DOSE: 445.66 mGy.cm FINDINGS: There is adequate opacification within main pulmonary artery. No acute pulmonary embolus seen. There is mild prominence of the main pulmonary artery is seen. Heart is normal in size without pericardial effusion or right heart strain. No coronary calcifications seen. There is no axillary, supra clavicle or internal mammary lymphadenopathy seen. Visualized portion of thyroid gland shows no evidence of focal lesions. Esophagus is normal. Aorta is normal in caliber. Tracheobronchial tree is patent. No large infiltrates or consolidative lesions are seen. Mild atelectasis at dependent portions of bilateral lower lobes is seen. There is no pleural effusion demonstrated. Limited evaluation of upper abdominal viscera shows hepatic steatosis and no acute abnormalities. Evaluation of osseous structures shows mild degenerative changes of the spine. IMPRESSION: 1. No acute pulmonary embolus. 2. No infiltrates or consolidative lesions are seen. Minimal atelectasis at dependent portions of bilateral lower lobes. 3. Hepatic steatosis ACT 112: Negative or not required by law. The above report was generated using voice recognition software. It may contain grammatical, syntax or spelling errors. Electronically signed by: Niyah Diaz DO 12/07/2020 5:07 PM Discharge Plan Visit Data Chief Complaint: Chest Pain Stated Complaint: CHEST PAIN,NAUSEA, HEAD PRESSURE ED Provider: Josh Medrano Discharge Problem: SVT (supraventricular tachycardia), New onset type 2 diabetes mellitus, El evated transaminase level, Elevated troponin Patient Disposition: Admitted As Inpatient Discharge Instructions Interventions: ED Discharge Assessment Last Done: 12/07/20 17:40 Forms Stand Alone Forms: [employer] Prescriptions Prescriptions: No Action albuterol sulfate 90 mcg/actuation Hfa Aerosol Inhaler 2 puff INHALATION Q6H PRN (Reason: Shortness Of Breath Or Wheezing) RF: 0 Referrals Referrals: PCP,NO [Primary Care Provider] -
[2020-12-07] MEDS ORDERED: ALBUTEROL HFA 8 GM INHALER INH PRN (18:26)
[2020-12-07] MEDS ORDERED: CARBOHYDRATES FOR HYPOGLYCEMIA PO PRN (18:26)
[2020-12-07] MEDS ORDERED: NITROGLYCERIN SL 0.4 MG/TAB TAB SL PRN (18:26)
[2020-12-07] MEDS ORDERED: DEXTROSE 50% 50 ML SYRINGE IV PRN (18:26)
[2020-12-07] MEDS ORDERED: POLYETHYLENE (MIRALAX) 17 GM PACK PO PRN (18:26)
[2020-12-07] MEDS ORDERED: ACETAMINOPHEN 325 MG TAB PO PRN (18:26)
[2020-12-07] MEDS ORDERED: GLUCAGON FOR INJ 1 MG VIAL SQ PRN (18:26)
[2020-12-07] MEDS ORDERED: ALUMINUM/MAGNESIUM SUSP 30 ML UDC PO PRN (18:26)
[2020-12-07] MEDS ORDERED: METOPROLOL TARTRATE 1 MG/ML VIAL IV PRN (18:26)
[2020-12-07] MEDS ORDERED: MAGNESIUM HYDROXIDE SUSP 30 ML UDC PO PRN (18:26)
[2020-12-07] MEDS ORDERED: GLUCOSE 10 TABS/TUBE PO PRN (18:26)
[2020-12-07] MEDS ORDERED: ONDANSETRON INJ 2 MG/ML 2 ML VIAL IV PRN (18:26)
[2020-12-07] MEDS ORDERED: GLUCOSE 40% GEL 15 GM TUBE PO PRN (18:26)
--- NOTE | 2020-12-07 18:31 | XRay Report ---
XR chest 1V not portable CLINICAL HISTORY: eval for L hemidiaphragm luceny COMPARISON STUDY: December 07, 2020 FINDINGS: No pneumothorax. No pleural effusion. No large infiltrates or consolidative lesions are seen. Cardiomediastinal silhouette is within normal limits in size. No significant pulmonary vascular congestion.. Osseous structures: Degenerative changes of the spine Recently seen lucency on the left hemidiaphragm likely representing gas-filled loop of bowel. IMPRESSION: 1. No acute pulmonary process. 2. Recently seen lucency on the left hemidiaphragm represents gas within superimposed loop of bowel. ACT 112: Negative or not required by law. The above report was generated using voice recognition software. It may contain grammatical, syntax o r spelling errors. Electronically signed by: Niyah Diaz DO 12/07/2020 6:30 PM
--- NOTE | 2020-12-07 18:48 | XRay Report ---
XR KUB/Abdomen 1 view CLINICAL HISTORY: eval for L hemidiaghragm luceny COMPARISON STUDY: No previous studies for comparison. FINDINGS: Few gas and stool-filled loops of bowel are seen throughout the abdomen in upper limits of normal. Right and left hemidiaphragms are outside the [id number]. Opacification of the renal collecting system is seen after recent contrast-enhanced CT exam. IMPRESSION: 1. Nonobstructive bowel gas pattern. ACT 112: Negative or not required by law. The above report was generated using voice recognition software. It may contain grammatical, syntax o r spelling errors. Electronically signed by: Niyah Diaz DO 12/07/2020 6:46 PM
[2020-12-07] MEDS ORDERED: PHARMACY GLYCEMIC MGMT CONSULT PRN (18:56)
[2020-12-07] MEDS ORDERED: INSULIN GLARGINE SOLOSTAR 100 UNITS/ML 3 ML PEN SC ONE ×2 (19:15→19:30)
[2020-12-07] MEDS: INSULIN ASPART 100 UNITS/ML 3 ML PEN SC SCH ×2 (19:41→21:35)
--- NOTE | 2020-12-07 20:05 | Pharmacy Report ---
Pharmacy Glycemic Short Note 2 - Date of Service December 07, 2020 - Glycemic Short BSG Results (Last 24 hours): 12/07/20 12/07/20 12/07/20 14:35 15:56 15:57 Glucose 429 H* POC Glucose 333 H* 332 H* 12/07/20 12/07/20 16:35 18:55 Glucose POC Glucose 289 H 319 H* OUTPATIENT ANTIDIABETIC REGIMEN: * n/a * A1c pending ASSESSMENT: * This is a 45-year-old female who has significant past medical history of morbid obesity and asthma who presents to ED after experiencing lightheadedness, shortness of breath. * Pharmacy consulted for glycemic management. BSGs on arrival in the 300s. No prior history of diabetes per notes. Started on heparin drip on admission. * Plan to start with stress of 2 dosing fo novolog and Lantus dosing. Plan to give 35 units Lantus x 1 now. PLAN FOR INPATIENT GLYCEMIC CONTROL: * Hold outpatient oral diabetes medications * Basal insulin * Lantus - 35 units x 1 * Bolus insulin * NovoLog per scale ACHS or Q6hrs while NPO * Goal Range: Low 110 mg/dL - High 140 mg/dL * Correction Factor: 25 mg/dL/unit * Nutritional / Prandial insulin per carb ratio of 1 unit per 8 grams CHO consumed PLAN FOR DISCHARGE: * tbd
[2020-12-07] MEDS ORDERED: INSULIN GLARGINE SOLOSTAR 100 UNITS/ML 3 ML PEN SC SCH (21:00)
[2020-12-07] MEDS ORDERED: METOPROLOL TARTRATE 25 MG TAB PO SCH (21:00)
--- NOTE | 2020-12-07 21:07 | Ultrasound Report ---
US venous doppler LE BI CLINICAL HISTORY: edema COMPARISON STUDY: No previous studies for comparison. FINDINGS: Real-time and color flow Doppler imaging were performed. Flow was seen within the femoral, popliteal and calf veins with no intraluminal thrombus demonstrated. The saphenous vein is patent. Subcutaneous edema is seen. IMPRESSION: No evidence of deep venous thrombosis. ACT 112: Negative or not required by law. The above report was generated using voice recognition software. It may contain grammatical, syntax o r spelling errors. Electronically signed by: Niyah Diaz DO 12/07/2020 9:05 PM
[2020-12-07 21:21] LABS: Magnesium 2.1 mg/dl (1.8-2.4); Troponin I 0.068 ng/ml (0-0.045)
[2020-12-07] MEDS: LOSARTAN POTASSIUM 50 MG TAB PO SCH (21:49)
[2020-12-08 00:17] LABS: Partial Thromboplastin Ratio 1.8
[2020-12-08] MEDS: INSULIN ASPART 100 UNITS/ML 3 ML PEN SC SCH ×6 (00:29→20:20)
[2020-12-08 01:54] LABS: Hematocrit (blood only) 37.3 % (37-47); Hemoglobin 12.7 g/dL (12.0-16.0); Mean Corpuscular Hemoglobin 29.9 pg (25-34); Mean Corpuscular Volume 87.8 fL (80-100); Mean Platelet Volume 10.6 fL (7.4-10.4); Platelet Count 222 K/uL (130-400); Red Blood Count 4.25 M/uL (4.2-5.4); White Blood Count 8.18 K/uL (4.8-10.8)
[2020-12-08 02:15] LABS: Albumin Level 2.9 gm/dl (3.4-5.0); BUN Creatinine Ratio 12.8 (10-20); Calcium 8.2 mg/dl (8.5-10.1); Creatinine Clr Calc Pharmacy 110.2 ml/min; Est GFR (African American) 111.8 ml/min; Est GFR (Non-African American) 96.5 ml/min; Magnesium 1.9 mg/dl (1.8-2.4); Potassium 3.6 mmol/L (3.5-5.1)
[2020-12-08 02:19] LABS: Albumin Globulin Ratio 0.7 (0.9-2); Bilirubin,Total 0.4 mg/dl (0.2-1); Globulin 3.9 gm/dl (2.5-4.0); Total Protein 6.8 gm/dl (6.4-8.2)
[2020-12-08] MEDS: LOSARTAN POTASSIUM 50 MG TAB PO SCH (08:07)
[2020-12-08] MEDS: METOPROLOL TARTRATE 25 MG TAB PO SCH ×2 (08:07→20:20)
[2020-12-08 08:13] LABS: Partial Thromboplastin Ratio 2.2
[2020-12-08 08:14] LABS: Partial Thromboplastin Time 56.7 Seconds (21.0-31.0)
[2020-12-08] MEDS ORDERED: INSULIN GLARGINE SOLOSTAR 100 UNITS/ML 3 ML PEN SC SCH (09:00)
[2020-12-08] MEDS ORDERED: POTASSIUM CHLORIDE CRTAB 20 MEQ TABCR PO SCH (09:30)
--- NOTE | 2020-12-08 09:45 | Cardiology Consultation ---
Date of Consultation December 08, 2020 Assessment & Plan (1) SVT (supraventricular tachycardia): I had a long discussion with the patient regarding the natural history and pathophysiology of supraventricular tachycardia. Continue beta-margaux, metoprolol 25 mg twice daily. Appropriate use of Valsalva maneuvers discussed. Encouraged patient to maintain adequate hydration and electrolyte replacement. Avoid extremes in temperature. Discussed indication for ablation therapy. Continue medical management at this time. (2) Elevated troponin: Likely demand ischemia secondary to more than 4 hours of supraventricular tachycardia with heart rate ranging up to 150 bpm. Review 2D transthoracic echocardiogram when available. If wall motion and LV function within normal limits, will discontinue intravenous heparin with plans for outpatient stress t esting when diabetes controlled. Add low-dose aspirin. (3) New onset type 2 diabetes mellitus: Insulin as per internal medicine. Add statin therapy. History of Present Illness Reason for Consultation: Possible NSTEMI Requesting Physician: Dr. Pacheco Attending Physician: Sean Pacheco MD History of Present Illness 45-year-old female presents to the emergency department secondary to dyspnea, dizziness, and "heart quivering". Patient was outdoors with her family yesterday when she noticed sudden onset of dizziness, fatigue, and sensation of "heart quivering". Symptoms persisted and she returned home to rest. prompted her to come to the ER where she was found to be supraventricular tachycardia at a rate of 140-150 bpm. She received 1 dose of intravenous adenosine with conversion to sinus rhythm and sinus tachycardia. Reports mild associated chest pressure and a feeling of nasal congestion during supraventr icular tachycardia. Troponins minimally elevated. Duration of symptoms was greater than 4 hours prior to presentation to the ER. Denies personal history of coronary disease, congestive heart failure, rheumatic fever as a child, or diabetes. Newly diagnosed diabetes with a blood sugar greater than 400 discovered on presentation. This morning she is feeling better from a cardiovascular perspective. Telemetry reveals sinus rhythm with heart rate ranging from 80-100 bpm. Denies any recurrent palpitations or chest discomfort. No orthopnea, PND, lower extremity edema, or claudication. Tolerated her a.m. meal. Offers no other concerns/complaints at this time. Allergies Allergy/AdvReac Type Severity Reaction Status Date / Time No Known Allergies Allergy Unknown Verified 12/07/20 16:07 Home Medications Medication Instructions Recorded Confirmed Type albuterol sulfate 2 puff INHALATION Q6H PRN 12/07/20 12/07/20 History aspirin [Children's Aspirin] 81 mg PO DAILY #30 tab 12/09/20 Rx atorvastatin 20 mg PO QAM #30 tab 12/09/20 Rx blood sugar diagnostic [OneTouch #100 ea 12/09/20 Rx Verio test strips] insulin aspart U-100 [Novolog 1 unit SC ACHS #15 ml 12/09/20 Rx Flexpen U-100 Insulin] insulin glargine [Lantus Solostar 25 unit SC QAM 30 Days #7.5 ml 12/09/20 Rx U-100 Insulin] lancets [OneTouch Delica Lancets] #100 ea 12/09/20 Rx losartan 50 mg PO QAM #30 tab 12/09/20 Rx metformin 500 mg PO PM #30 tab 12/09/20 Rx metoprolol tartrate 25 mg PO BID #60 tab 12/09/20 Rx pen needle, diabetic [Pen Needle] #100 ea 12/09/20 Rx Patient History Medical History Asthma Surgical History History of x 2 History of D&C S/P laparoscopic hysterectomy Family History Mother Diabetes Hypertension Father Diabetes Hypertension Grandmother (Maternal) CHF (congestive heart failure) Social History Smoking Status: Never smoker Hx Alcohol Use: Yes Alcohol type: beer and wine Alcohol Intake Frequency: Monthly or Less Hx Substance Use: No Preferred Language: Czech Communication Ability: Effective Hat Former Required: No Beliefs That Will Affect Care: None marital status: Current Living Situation: Family current occupational status: employed current occupation: detention officer of physical therapy business Feels Safe at Home: Yes Assistive Devices: Contacts Review of Systems Review of Systems: All systems reviewed & are unremarkable except as noted in Subjective Physical Exam Constitutional: well developed and well nourished; no acute distress Respiratory: normal respiratory effort; no respiratory distress and no labored breathing Auscultation: lungs clear to auscultation bilaterally; no crackles, no rales, no rhonchi and no wheezes Cardiovascular: Rate/Rhythm: regular rate and regular rhythm Heart Sounds: normal S1 and normal S2; no murmur Palpation: normal PMI Vessels: radial pulses present; no JVD Extremities: no edema Gastrointestinal (Abdomen): Inspection/Auscultation: normal bowel sounds; abdomen not distended Percussion/Palpation: abdomen soft; abdomen nontender, no guarding and abdomen not rigid Neurologic: CN's II-XI intact bilaterally and moves all extremities; no focal motor deficits Motor/Sensory: no tremor Psychiatric: A+Ox3, euthymic affect Results & Data ([facility]) Vital Signs (Past 12 Hours) Vital Signs Temp Pulse Pulse Resp BP Pulse Ox 12/08/20 08:00 79 12/08/20 07:48 36.5 C 72 18 125/83 95 12/08/20 03:37 36.5 C 73 18 93/60 L 96 12/08/20 00:56 79 12/07/20 23:50 36.8 C 72 18 127/78 97 12/07/20 21:50 71 16 143/87 H
[2020-12-08] MEDS: HEPARIN SODIUM/DEXTROSE 25,000 UNITS/500 ML BAG IV SCH (09:54)
[2020-12-08] MEDS: ASPIRIN 81 MG CHEW PO SCH (10:39)
[2020-12-08] MEDS: ATORVASTATIN 20 MG TAB PO SCH (11:10)
[2020-12-08] MEDS ORDERED: INSULIN GLARGINE SOLOSTAR 100 UNITS/ML 3 ML PEN SC STA (11:37)
--- NOTE | 2020-12-08 11:47 | Pharmacy Report ---
Pharmacy Glycemic Short Note 2 - Date of Service December 08, 2020 - Glycemic Short BSG Results (Last 24 hours): 12/07/20 12/07/20 12/07/20 14:35 15:56 15:57 Glucose 429 H* POC Glucose 333 H* 332 H* 12/07/20 12/07/20 12/07/20 16:35 18:55 23:49 Glucose POC Glucose 289 H 319 H* 177 H 12/08/20 12/08/20 12/08/20 01:45 03:46 07:31 Glucose 155 H POC Glucose 157 H 176 H 12/08/20 11:13 Glucose POC Glucose 208 H OUTPATIENT ANTIDIABETIC REGIMEN: * n/a * A1c pending ASSESSMENT: 12/08: * Eli received a total of 64 units of insulin yesterday * 35 units basal + 29 units bolus * BSGs improved overnight: [phone] mg/dL * Fasting BSG was 176 mg/dL this AM which is improved but still above goal range * 30 units of Lantus was given this AM. Will add an additional 12 units at lunchtime for BSG of 208 mg/dL. This will equal a 20% increase in basal dose today. Attempting to keep once daily Lantus dosing in a patient with new onset T2DM for ease of outpatient administration. * Tightened CF & CR with breakfast. Will tighten both even further with lunchtime high. 12/07: * This is a 45-year-old female who has significant past medical history of morb id obesity and asthma who presents to ED after experiencing lightheadedness, shortness of breath. * Pharmacy consulted for glycemic management. BSGs on arrival in the 300s. No prior history of diabetes per notes. Started on heparin drip on admission. * Plan to start with stress of 2 dosing fo novolog and Lantus dosing. Plan to give 35 units Lantus x 1 now. PLAN FOR INPATIENT GLYCEMIC CONTROL: * Basal insulin - increased * Lantus 42 units SC daily (given as 30 units AM + 12 units w/ lunch) * Bolus insulin - tightened CF/CR * NovoLog per scale ACHS or Q6hrs while NPO * Goal Range: Low 110 mg/dL - High 140 mg/dL * Correction Factor: 15 mg/dL/unit * Nutritional / Prandial insulin per carb ratio of 1 unit per 5 grams CHO consumed PLAN FOR DISCHARGE: * To be determined
--- NOTE | 2020-12-08 13:03 | Electrocardiogram Report ---
Test Reason : Blood Pressure : / mmHG Vent. Rate : 109 BPM Atrial Rate : 109 BPM P-R Int : 164 ms QRS Dur : 090 ms QT Int : 358 ms P-R-T Axes : 077 -59 098 degrees QTc Int : 482 ms Sinus tachycardia Left axis deviation Abnormal ECG When compared with ECG of 07-DEC-2020 14:16, (unconfirmed) ST no longer depressed in Inferior leads Confirmed by Bijan Swain ([id number]) on 12/08/2020 1:03:37 PM Referred By: REFERRED SELF Confirmed By:Frankie Swain
--- NOTE | 2020-12-08 13:03 | Electrocardiogram Report ---
Test Reason : Blood Pressure : / mmHG Vent. Rate : 142 BPM Atrial Rate : 129 BPM P-R Int : 000 ms QRS Dur : 088 ms QT Int : 300 ms P-R-T Axes : 000 -63 097 degrees QTc Int : 461 ms Supraventricular tachycardia Left axis deviation Abnormal ECG No previous ECGs available Confirmed by Bijan Swain ([id number]) on 12/08/2020 1:02:58 PM Referred By: REFERRED SELF Confirmed By:Frankie Swain
--- NOTE | 2020-12-08 13:04 | Electrocardiogram Report ---
Test Reason : Blood Pressure : / mmHG Vent. Rate : 090 BPM Atrial Rate : 090 BPM P-R Int : 168 ms QRS Dur : 092 ms QT Int : 396 ms P-R-T Axes : 078 -48 067 degrees QTc Int : 484 ms Normal sinus rhythm Left axis deviation Prolonged QT Abnormal ECG When compared with ECG of 07-DEC-2020 14:35, (unconfirmed) Nonspecific T wave abnormality has replaced inverted T waves in Lateral leads Confirmed by Bijan Swain ([id number]) on 12/08/2020 1:04:21 PM Referred By: REFERRED SELF Confirmed By:Frankie Swain
--- NOTE | 2020-12-08 13:09 | Electrocardiogram Report ---
Test Reason : Blood Pressure : / mmHG Vent. Rate : 070 BPM Atrial Rate : 070 BPM P-R Int : 144 ms QRS Dur : 092 ms QT Int : 440 ms P-R-T Axes : 048 -39 037 degrees QTc Int : 475 ms Normal sinus rhythm Left axis deviation Nonspecific T wave abnormality Prolonged QT Abnormal ECG When compared with ECG of 07-DEC-2020 16:43, (unconfirmed) Nonspecific T wave abnormality, worse in Anterolateral leads Confirmed by Bijan Swain ([id number]) on 12/08/2020 1:08:46 PM Referred By: REFERRED SELF Confirmed By:Frankie Swain
--- NOTE | 2020-12-08 16:32 | Hospitalist Progress Note ---
Date of Service December 08, 2020 Assessment & Plan (1) SVT (supraventricular tachycardia): Patient is a 45 yr female with H/O Morbid obesity and asthma who presents to ED after experiencing lightheadedness, shortness of breath and palpitations 30 minutes prior to arrival. Supraventricular tachycardia Type II [place] Received IV adenosine x2. in ED ECHO: Left ventricle systolic function normal. EF 55 to 60%. No regional wall motion abnormality. No significant valvular pathology. Appreciate cardiology input IV heparin discontinued Continue metoprolol 25 mg twice daily Monitor electrolytes and replace as needed Needs follow-up with cardiology upon discharge Elevated D dimer -CTA: No acute pulmonary embolus. No infiltrates or consolidative lesions are seen. Minimal atelectasis at dependent portions of bilateral lower lobes. Hepatic steatosis -Venous Doppler:No evidence of deep venous thrombosis. 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 Monitor BGs (4) Elevated transaminase level: Likely due to Hepatic Steatosis LFTs trended down Denies abd pain (5) Obesity (BMI 30-39.9): BMI 36.7 Encourage diet and lifestyle modifications (6) DVT prophylaxis: Heparin SQ Code Status Full Code Admission and Anticipated Discharge Date Admission Date: December 07, 2020 Subjective Patient is seen and examined at bedside States feeling well today Offers no complaints Denies chest pain, shortness of breath, dizziness, nausea, abdominal pain Review of Systems Review of Systems: All systems reviewed & are unremarkable except as noted in HPI & below Physical Exam Physical Exam: Physical Exam: Vitals signs as noted above General Appearance:Obese, no apparent distress Head: normocephalic, Atraumatic Eyes: normal inspection, EOMI Neck: supple, Trachea midline Respiratory/Chest: Normal breath sounds, CTA, No accessory muscle use Cardiovascular: S1, S2, No murmur Abdomen/GI:Soft, Non tender, Bowel sounds present Extremities/Musculoskeletal:normal inspection, no edema Neurologic/Psych:AAOX3, grossly no focal neurological deficits Skin: normal color, warm Results & Data Results & Data ([facility]) Vital Signs (Past 12 Hours) Vital Signs Temp Pulse Pulse Resp BP Pulse Ox 12/08/20 16:00 71 12/08/20 15:43 37.1 C 69 18 116/74 96 12/08/20 11:00 36.8 C 63 18 131/74 97 12/08/20 08:00 79 12/08/20 07:48 36.5 C 72 18 125/83 95 Laboratory Results Short CBC 12/08/20 Range/Units 01:45 WBC 8.18 (4.8-10.8) K/uL Hgb 12.7 (12.0-16.0) g/dL Hct 37.3 (37-47) % Plt Count 222 (130-400) K/uL BMP 12/08/20 01:45 Sodium 139 Potassium 3.6 Chloride 105 Carbon Dioxide 28 BUN 10 Creatinine 0.74 D Glucose 155 H Calcium 8.2 L Cardiac Enzymes 12/07/20 12/08/20 Range/Units 20:29 01:45 Troponin I 0.068 H* 0.044 (0-0.045) ng/ml Liver Function 12/08/20 Range/Units 01:45 Total Bilirubin 0.4 (0.2-1) mg/dl AST 42 H (15-37) U/L ALT 62 (12-78) U/L Alkaline Phosphatase 110 (45-117) U/L Albumin 2.9 L (3.4-5.0) gm/dl Urine 12/07/20 Range/Units 15:55 Urine Color Yellow Urine Appearance Clear (Clear) Urine pH 5.5 (4.5-7.5) Ur Specific [place] 1.024 (1.000-1.030) Urine Protein Negative (Negative) Urine Glucose (UA) 3+ H (Negative)
[2020-12-08] MEDS: HEPARIN SOD 5,000 UNIT/0.5 ML VIAL SQ SCH (20:19)
[2020-12-09 06:48] LABS: Estimated Average Glucose 280 mg/dl; Hemoglobin A1C 11.4 % (4.5-5.6)
[2020-12-09 07:00] LABS: BUN Creatinine Ratio 15.5 (10-20); Calcium 8.3 mg/dl (8.5-10.1); Creatinine Clr Calc Pharmacy 119.6 ml/min; Est GFR (African American) 120.7 ml/min; Est GFR (Non-African American) 104.2 ml/min; Potassium 3.7 mmol/L (3.5-5.1)
[2020-12-09] MEDS: INSULIN ASPART 100 UNITS/ML 3 ML PEN SC SCH ×2 (08:30→11:55)
[2020-12-09] MEDS: METOPROLOL TARTRATE 25 MG TAB PO SCH (08:32)
[2020-12-09] MEDS: HEPARIN SOD 5,000 UNIT/0.5 ML VIAL SQ SCH (08:35)
[2020-12-09] MEDS: ATORVASTATIN 20 MG TAB PO SCH (08:36)
[2020-12-09] MEDS: LOSARTAN POTASSIUM 50 MG TAB PO SCH (08:36)
[2020-12-09] MEDS: ASPIRIN 81 MG CHEW PO SCH (08:36)
[2020-12-09] MEDS ORDERED: INSULIN GLARGINE SOLOSTAR 100 UNITS/ML 3 ML PEN SC SCH (09:00)
--- NOTE | 2020-12-09 10:00 | Cardiology Progress Note ---
Date of Service December 09, 2020 Assessment & Plan (1) SVT (supraventricular tachycardia): No recurrent episodes of SVT since admission Continue metoprolol tartrate 25 mg BID. Appropriate Valsalva maneuvers discussed. Encouraged patient to maintain adequate hydration and electrolyte replacement. Avoid extremes in temperature. Potential for ablation in the future if she fails medication (2) Elevated troponin: Likely demand ischemia secondary to more than 4 hours of supraventricular tachycardia with heart rate ranging up to 150 bpm. Echo report reviewed - normal LV function, no wall motion abnormalities. No valvular heart disease May discontinue IV heparin. Consider outpatient stress test when DM controlled Added low-dose aspirin. (3) New onset type 2 diabetes mellitus: Insulin as per internal medicine. Statin therapy added (4) Hypertension: BP improved with metoprolol and losartan Stable for discharge from cardiac perspective, however, patient is aware she may need additional time to assist with DM management. Defer to hospitalist. Will arrange cardio f/u in 2-4 weeks at [facility] Admission and Anticipated Discharge Date Admission Date: December 07, 2020 Supervising Physician Co-Signing Physician Notes Patient seen and examined. Presenting history of atrial arrhythmia discussed in detail. Assessment and plan as outlined above. Outpatient follow-up with cardiology to be scheduled in 2 to 4 weeks time patient to be discharged on beta-margaux and aspirin as ordered Subjective Patient resting in bed comfortably. No recent palpitations or tachypalpitations. Tolerating metoprolol. BP improved with losartan as well. No chest pain or dyspnea. No dizziness or lightheadedness. No edema. Review of Systems Review of Systems: All systems reviewed & are unremarkable except as noted in HPI & below Physical Exam 2 Constitutional: well developed and well nourished; no acute distress Respiratory: normal respiratory effort; no respiratory distress and no labored breathing Auscultation: lungs clear to auscultation bilaterally; no crackles, no rales, no rhonchi and no wheezes Cardiovascular: Rate/Rhythm: regular rate and regular rhythm Heart Sounds: normal S1 and normal S2; no murmur Palpation: normal PMI Vessels: radial pulses present; no JVD Extremities: no edema Gastrointestinal (Abdomen): Inspection/Auscultation: normal bowel sounds; abdomen not distended Percussion/Palpation: abdomen soft; abdomen nontender, no guarding and abdomen not rigid Neurologic: CN's II-XI intact bilaterally and moves all extremities; no focal motor deficits Motor/Sensory: no tremor Psychiatric: A+Ox3, euthymic affect Results & Data ([facility]) Vital Signs (Past 12 Hours) Vital Signs Temp Pulse Resp BP Pulse Ox 12/09/20 07:19 37.0 C 65 17 129/83 97 12/09/20 03:30 37.0 C 68 20 109/71 96 12/08/20 22:47 36.4 C L 58 L 18 121/82 98 Laboratory Results 12/09/20 12/09/20 12/08/20 Range/Units 07:20 05:50 20:07 Sodium 138 (136-145) mmol/L Potassium 3.7 (3.5-5.1) mmol/L Chloride 104 (98-107) mmol/L Carbon Dioxide 29 (21-32) mmol/L Anion Gap 5.0 (3-11) BUN 11 (7-18) mg/dl Creatinine 0.68 (0.6-1.2) mg/dl Est Cr Clr Drug Dosing 119.6 ml/min Est GFR ( Amer) 120.7 ml/min Est GFR (Non-Af Amer) 104.2 ml/min BUN/Creatinine Ratio 15.5 (10-20) Glucose 113 H (70-99) mg/dl POC Glucose 111 H 147 H (70-99) mg/dl Estimat Average Glucose mg/dl Hemoglobin A1c (4.5-5.6) % Calcium 8.3 L (8.5-10.1) mg/dl 12/08/20 12/08/20 12/07/20 Range/Units 16:25 11:13 14:35 Sodium (136-145) mmol/L Potassium (3.5-5.1) mmol/L Chloride (98-107) mmol/L Carbon Dioxide (21-32) mmol/L Anion Gap (3-11) BUN (7-18) mg/dl Creatinine (0.6-1.2) mg/dl Est Cr Clr Drug Dosing ml/min Est GFR ( Amer) ml/min Est GFR (Non-Af Amer) ml/min BUN/Creatinine Ratio (10-20) Glucose (70-99) mg/dl POC Glucose 152 H 208 H (70-99) mg/dl Estimat Average Glucose 280 mg/dl Hemoglobin A1c 11.4 H (4.5-5.6) % Calcium (8.5-10.1) mg/dl Diagnostic Findings Telemetry reviewed: NSR, Sinus tach. No recurrent episodes of SVT. Medications Administered Current Inpatient Medications Acetaminophen (Acetaminophen 325 Mg Tab) 650 mg PO Q4H PRN PRN Reason: Pain or Fever Stop: 01/06/21 18:25 Last Admin: 12/08/20 08:48 Dose: 650 mg Documented by: Al Hydrox/Mg Hydrox/Simethicone (Aluminum/Magnesium Susp 30 Ml Udc) 15 ml PO Q4H PRN PRN Reason: Dyspepsia Stop: 01/06/21 18:25 Albuterol (Albuterol Hfa 8 Gm Inhaler) 2 puffs INH Q6H PRN PRN Reason: Shortness Of Breath Or Wheezin Stop: 01/06/21 18:25 Aspirin (Aspirin 81 Mg Chew) 81 mg PO DAILY [facility] Stop: 01/07/21 09:59 Last Admin: 12/09/20 08:36 Dose: 81 mg Documented by: Atorvastatin Calcium (Atorvastatin 20 Mg Tab) 20 mg PO QAM [facility] Stop: 01/07/21 09:59 Last Admin: 12/09/20 08:36 Dose: 20 mg Documented by: Dextrose (Dextrose 50% 50 Ml Syringe) 25 - 50 ml IV UD PRN; Protocol PRN Reason: Hypoglycemia Protocol Stop: 01/06/21 18:25 Glucagon (Glucagon For Inj 1 Mg Vial) 1 mg SQ UD PRN; Protocol PRN Reason: Hypoglycemia Protocol Stop: 01/06/21 18:25 Glucose (Glucose 10 Tabs/Tube) 4 - 8 tabs PO UD PRN; Protocol PRN Reason: Hypoglycemia Protocol Stop: 01/06/21 18:25 Glucose (Glucose 40% Gel 15 Gm Tube) 15 - 30 gm PO UD PRN; Protocol PRN Reason: Hypoglycemia Protocol Stop: 01/06/21 18:25 Heparin Sodium (Porcine) (Heparin Sod 5,000 Unit/0.5 Ml Vial) 5,000 units SQ Q12 [facility] Stop: 01/07/21 20:59 Last Admin: 12/09/20 08:35 Dose: 5,000 units Documented by: Insulin Aspart (Insulin Aspart 100 Units/Ml 3 Ml Pen) 0 units SC ACHS [facility]; Protocol Stop: 01/06/21 18:25 Last Admin: 06/21/21 08:30 Dose: 7 units Documented by: Insulin Glargine (Insulin Glargine Solostar 100 Units/Ml 3 Ml Pen) 38 units SC QAM [facility]; Protocol Stop: 01/08/21 08:59 Last Admin: 12/09/20 08:32 Dose: 38 units Documented by: Losartan Potassium (Losartan Potassium 50 Mg Tab) 50 mg PO QAM [facility] Stop: 01/06/21 19:44 Last Admin: 12/09/20 08:36 Dose: 50 mg Documented by: Magnesium Hydroxide (Magnesium Hydroxide Susp 30 Ml Udc) 30 ml PO Q12H PRN PRN Reason: Constipation Stop: 01/06/21 18:25 Metoprolol Tartrate (Metoprolol Tartrate 1 Mg/Ml Vial) 5 mg IV Q6H PRN PRN Reason: Tachycardia Stop: 01/06/21 18:25 Metoprolol Tartrate (Metoprolol Tartrate 25 Mg Tab) 25 mg PO BID [facility] Stop: 01/07/21 08:59 Last Admin: 12/09/20 08:32 Dose: 25 mg Documented by: Miscellaneous (Carbohydrates For Hypoglycemia ) 15 - 30 gm PO UD PRN PRN Reason: Hypoglycemia Protocol Stop: 01/06/21 18:25 Miscellaneous Information (Pharmacy Glycemic Mgmt Consult) 1 ea N/A UD PRN; Protocol PRN Reason: consult Stop: 01/06/21 18:55 Nitroglycerin (Nitroglycerin Sl 0.4 Mg/Tab Tab) 0.4 mg SL UD PRN PRN Reason: Chest Pain Stop: 01/06/21 18:25 Ondansetron HCl (Ondansetron Inj 2 Mg/Ml 2 Ml Vial) 4 mg IV Q6H PRN PRN Reason: Nausea Stop: 01/06/21 18:25 Polyethylene Glycol (Polyethylene (Miralax) 17 Gm Pack) 17 gm PO DAILY PRN PRN Reason: Constipation Stop: 01/06/21 18:25
--- NOTE | 2020-12-09 13:49 | Hospitalist Progress Note ---
Date of Service December 09, 2020 Assessment & Plan (1) SVT (supraventricular tachycardia): Patient is a 45 yr female with H/O Morbid obesity and asthma who presents to ED after experiencing lightheadedness, shortness of breath and palpitations 30 minutes prior to arrival. Supraventricular tachycardia Type II LA Received IV adenosine x2. in ED ECHO: Left ventricle systolic function normal. EF 55 to 60%. No regional wall motion abnormality. No significant valvular pathology. Appreciate cardiology input IV heparin discontinued Continue metoprolol 25 mg twice daily Monitor electrolytes and replace as needed Needs follow-up with cardiology upon discharge in 2-4 weeks Elevated D dimer -CTA: No acute pulmonary embolus. No infiltrates or consolidative lesions are seen. Minimal atelectasis at dependent portions of bilateral lower lobes. Hepatic steatosis -Venous Doppler:No evidence of deep venous thrombosis. 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 Appreciate Glycemic Pharmacist recommendations (4) Elevated transaminase level: Likely due to Hepatic Steatosis LFTs trended down Denies abd pain (5) Obesity (BMI 30-39.9): BMI 36.7 Encourage diet and lifestyle modifications (6) DVT prophylaxis: Heparin SQ Code Status Full Code Admission and Anticipated Discharge Date Admission Date: December 07, 2020 Subjective Patient is seen and examined at bedside No new complaints Denies chest pain, shortness of breath, dizziness, nausea, abdominal pain Review of Systems Review of Systems: All systems reviewed & are unremarkable except as noted in HPI & below Physical Exam Physical Exam: Physical Exam: Vitals signs as noted above General Appearance:Obese, no apparent distress Head: normocephalic, Atraumatic Eyes: normal inspection, EOMI Neck: supple, Trachea midline Respiratory/Chest: Normal breath sounds, CTA, No accessory muscle use Cardiovascular: S1, S2, No murmur Abdomen/GI:Soft, Non tender, Bowel sounds present Extremities/Musculoskeletal:normal inspection, no edema Neurologic/Psych:AAOX3, grossly no focal neurological deficits Skin: normal color, warm Results & Data Results & Data ([facility]) Vital Signs (Past 12 Hours) Vital Signs Temp Pulse Pulse Resp BP Pulse Ox 12/09/20 12:07 36.9 C 65 18 130/75 97 12/09/20 08:00 57 L 12/09/20 07:19 37.0 C 65 17 129/83 97 12/09/20 03:30 37.0 C 68 20 109/71 96 Laboratory Results BMP 12/09/20 05:50 Sodium 138 Potassium 3.7 Chloride 104 Carbon Dioxide 29 BUN 11 Creatinine 0.68 Glucose 113 H Calcium 8.3 L
--- NOTE | 2020-12-09 14:07 | Discharge Summary ---
Date of Service December 09, 2020 Admission HPI Per Admitting Provider This is a 45-year-old female who has significant past medical history of morbid obesity and asthma who presents to ED after experiencing lightheadedness, shortness of breath and palpitations 30 minutes prior to arrival. Patient was walking in [facility] for approximately a quarter of a mile whenever she thought she was having, "a panic attack." She began experiencing heart racing, lightheadedness, diaphoresis, nausea and shortness of breath. Her and her opted to turn around and return to her car. She had significant increased difficulty walking back to her car. When she got to her car her noted she continually to sweat profusely and opted to bring her to ED. She denied any associated chest pain, syncope, headache, change in vision, change in hearing, cough, URI symptoms, abdominal pain, change in bowel or urinary habits. When she arrived to ED she was found to have heart rates in the 150s and EKG reading SVT. She did have one episode of vomiting. She received adenosine 6 mg and an additional 12 mg of adenosine until she returned to normal sinus rhythm. She further received 2 L of IV fluid, 1 g mag sulfate, 20 mEq oral potassium and 10 units of IV insulin. She was found to have a blood sugar of 429 on random lab draw. She has no prior diagnosis of diabetes. She previously followed with Dr. Naik prior to him retiring. She states she has not seen a doctor in, "a while." She does have a family history of diabetes and hypertension. She does not speak much with her parents denies any known history of CAD. She states her maternal grandmother did have a CHF in her 60s and in her 70s. She does not take any medication on a regular basis and occasionally uses albuterol for her asthma. She feels her asthma has been otherwise well controlled and denies any recent illness. She also occasionally takes ibuprofen for aches or pains. She denies any smoking but does occasionally use alcohol approximately every 3 weeks. This is socially. She denies any herbal supplements or illicit drug use. Admission Exam Per Admitting Provider Physical Exam Physical Exam: Constitutional: WD/WN, obese, female, vitals as above, NAD, sitting up in bed, pleasant, conversing easily Head: Normocephalic, Atraumatic Eyes: PERRL, conjunctivae normal, anicteric sclerae ENMT: external ear and nose normal, oropharynx normal Neck: trachea midline, no thyromegaly normal visual inspection Respiratory: normal respiratory effort, lungs clear to auscultation, no wheeze, rales, rhonchi. Normal insp/exp effort, no accessory muscle use Cardiovascular: RRR, no murmur, bilateral pretibial edema Vessels: no JVD or carotid bruit Chest: normal inspection of chest Abdomen: normal bowel sounds, soft, nontender, no hepatosplenomegaly Musculoskeletal: no cyanosis or clubbing, extremities motor strength 5/5 Skin: no rashes, warm and dry normal turgor Neurologic: PERRL, EOMI, accommodation nl, no face palsy, no dysarthria CN's II-XI intact bilaterally and moves all extremities Psychiatric: A+Ox3, euthymic affect Lymphatic: no cervical or axillary lymphadenopathy : deferred Principal Diagnosis Supraventricular Tachycardia Diabetes Mellitus Type II Hypomagnesemia Discharge Data Allergies Allergy/AdvReac Type Severity Reaction Status Date / Time No Known Allergies Allergy Unknown Verified 12/07/20 16:07 Consultations 12/07/20 15:36 ED Decision to Admit Stat 12/07/20 16:23 Consult Cardiology Routine Procedures Performed ECHO: Left ventricle systolic function normal. EF 55 to 60%. No regional wall motion abnormality. No significant valvular pathology. Ordered Studies 12/07/20 15:38 CT angio chest PE protocol Stat 12/07/20 16:27 US venous doppler LE Routine Hospital Course (1) SVT (supraventricular tachycardia): Patient is a 45 yr female with H/O Morbid obesity and asthma who presents to ED after experiencing lightheadedness, shortness of breath and palpitations 30 m inutes prior to arrival. Supraventricular tachycardia Type II IL Received IV adenosine x2. in ED ECHO: Left ventricle systolic function normal. EF 55 to 60%. No regional wall motion abnormality. No significant valvular pathology. Appreciate cardiology input IV heparin discontinued Continue metoprolol 25 mg twice daily Monitor electrolytes and replace as needed Needs follow-up with cardiology upon discharge in 2-4 weeks Elevated D dimer -CTA: No acute pulmonary embolus. No infiltrates or consolidative lesions are seen. Minimal atelectasis at dependent portions of bilateral lower lobes. Hepatic steatosis -Venous Doppler:No evidence of deep venous thrombosis. 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 Appreciate Glycemic Pharmacist recommendations (4) Elevated transaminase level: Likely due to Hepatic Steatosis LFTs trended down Denies abd pain (5) Obesity (BMI 30-39.9): BMI 36.7 Encourage diet and lifestyle modifications (6) DVT prophylaxis: Heparin SQ Code Status Full Code Total Time Total Time Spent Total Time Spent (In Minutes): 40 minutes Total Time Includes: Examination of the Patient, Discharge Planning, Medication Reconciliation, Communication With Other Providers and Other Discharge Plan Discharge Items Patient Disposition: Home - Self-Care Reason For Visit: SVT, POSSIBLE NSTEMI Discharge Diagnosis: Supraventricular Tachycardia Diabetes Mellitus Type II Hypomagnesemia Activity: Per Instructions section Exercise/Sports: Gradually increase as tolerated Non-emergency contact: Primary Care Provider and Reserve Officer Call non-emergency contact if: you have any medication questions, your symptoms worsen, your pain is not controlled, your pain is concerning for you and you have a fever Follow-up/Referrals: Jony Hawkins DO [Reserve Officer] - 12/20/21 2:00 pm (your follow up appt with Dr Hawkins is December 20 @ 2pm) Wei Ontiveros DO [Outside Practitioners] - (Date & Time 12/16/2020 11:00 AM Provider Wei Ontiveros DO Department Family [facility] ) Diet: Carb Consistent or DM2 and Heart Healthy Addtl Attending Provider Instructions: Follow-up with your primary care physician Dr. 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 Insulin Sliding Scale Recommendations: Blood Sugar 70-150 administer : 0 units Blood Sugar 151-200 administer : 1 units Blood Sugar 201-250 administer : 3 units Blood Sugar 251-300 administer : 5 units Blood Sugar 301-350 administer : 7 units Blood Sugar 351-400 administer : 9 units Blood Sugar >400 administer : 11 units and call MD Discussed with your primary care physician for further adjustment of your medications for diabetes management. Seek immediate medical attention if your symptoms reoccur or worsen Please take all medications as instructed on discharge list below. Please call if you have any questions or problems. You can reach a [facility] hospitalist on duty at [facility] 24 hours a day by calling [phone] Pending Studies at Discharge: No Stand-Alone Forms: My [facility] [address] [facility], Smoking Cessation Medications and DC Order Prescriptions: New losartan 50 mg Tablet 50 mg PO QAM Qty: 30 RF: 1 atorvastatin 20 mg Tablet 20 mg PO QAM Qty: 30 RF: 1 aspirin [Children's Aspirin] 81 mg Tablet,Chewable 81 mg PO DAILY Qty: 30 RF: 1 insulin aspart U-100 [Novolog Flexpen U-100 Insulin] 100 unit/mL (3 mL) Insulin Pen 1 unit SC ACHS Qty: 15 RF: 1 metoprolol tartrate 25 mg Tablet 25 mg PO BID Qty: 60 RF: 1 Lantus Solostar U-100 Insulin 100 unit/mL (3 mL) Insulin Pen 25 unit SC QAM 30 Days Qty: 7.5 RF: 1 metformin 500 mg tablet extended release 24hr 500 mg PO PM Qty: 30 RF: 1 (DME) OneTouch Verio test strips Strip See Rx Instructions .ROUTE .MEDSUPPLY Qty: 100 RF: 2 (DME) lancets [OneTouch Delica Lancets] 33 gauge misc See Rx Instructions .ROUTE .MEDSUPPLY Qty: 100 RF: 2 (DME) pen needle, diabetic [Pen Needle] 32 gauge x 5/32" needle See Rx Instructions .ROUTE .MEDSUPPLY Qty: 100 RF: 2 Continued albuterol sulfate 90 mcg/actuation Hfa Aerosol Inhaler 2 puff INHALATION Q6H PRN (Reason: Shortness Of Breath Or Wheezing) RF: 0 Discharge Orders: Discharge Order (Routine); Ordered 12/09/20 Ordered By: Sean Pacheco Admission Data Admit Date/Time: 12/07/20 16:19 Attending Provider: Sean Pacheco Admit Provider: Sean Pacheco Primary Care Provider: PCP,NO Other Providers: Jony Hawkins ; Sean Pacheco Other Interventions: Discharge Summary Assessment (RN) Last Done: 12/09/20 14:16
--- NOTE | 2020-12-09 14:47 | Electrocardiogram Report ---
Test Reason : Blood Pressure : / mmHG Vent. Rate : 060 BPM Atrial Rate : 060 BPM P-R Int : 148 ms QRS Dur : 090 ms QT Int : 470 ms P-R-T Axes : 049 -42 035 degrees QTc Int : 470 ms Normal sinus rhythm Left axis deviation Nonspecific T wave abnormality Abnormal ECG When compared with ECG of 08-DEC-2020 07:11, No significant change Confirmed by Manpreet Mcclain ([id number]) on 12/09/2020 2:47:16 PM Referred By: REFERRED SELF Confirmed By:Manpreet Mcclain
--- NOTE | 2020-12-10 17:17 | Coding Query ---
CODING QUERY To promote full compliance with coding requirements relating to patient care, provider participation is requested in all cases of machine heddle cleaner uncertainty. Please assist us with the question(s) below: Coding Question(s): Patient admitted with SVT . Progress notes mention Type 2 PR . Cardiology documented demand ischemia on 12/08. Seeking to clarify the diagnosis, after study that was treated. Please check below the phrase that applies. Thanks for your help! LARISA Jamison [facility] Physician's Response(s): ____x___ Patient was treated/diagnosed with demand ischemia x__ Patient was treated / diagnosed with Type 2 PR Cannot clinically correlate if patient was treated for Type 2 PR or Demand Ischemia Other: Please document: Principal Diagnosis: "that condition established after study, to be chiefly responsible for occasioning the admission of the patient to the hospital for care." Co-Existing Principal Diagnosis: "when two or more diagnoses equally meet the criteria for principal diagnosis as determined by the circumstances of admission, diagnostic work up, and/or therapy provided, and the Alphabetic Index, Tabular List, or another coding guideline does not provide sequencing direction, any one of the diagnoses may be sequenced first." "When the physician has documented what appears to be a current diagnosis in the body of the record, but has not included the diagnosis in the final diagnostic statement, the physician should be asked whether the diagnosis should be added." (Source Coding Clinic 2 QTR90. p3-4) TAYLA
== END 2020-12-09 15:53 | disposition home or self-care (01) | DRG 282 ==
LOC: ED 14:02 → 2S 16:19